=== PATIENT | female | born 1990 | race Hispanic/Latino ===

== ENCOUNTER 2016-10-06 08:50 | Inpatient (IN) | payer MEDICAID ==
[2016-10-06] MEDS ORDERED: MINERAL OIL PO PRN (08:58)
[2016-10-06] MEDS ORDERED: STADOL IV PRN (08:58)
[2016-10-06] MEDS ORDERED: ePHEDrine SULFATE IV PRN ×2 (08:58→14:07)
[2016-10-06] MEDS ORDERED: PHENERGAN PO PRN (08:58)
[2016-10-06] MEDS ORDERED: ZOFRAN IV PRN ×2 (08:58→19:35)
[2016-10-06] MEDS ORDERED: BRETHINE SUB-Q PRN (08:58)
[2016-10-06] MEDS ORDERED: SUBLIMAZE IV PRN (08:58)
[2016-10-06] MEDS ORDERED: PITOCin/NS 20 UNIT/1000ML DRIP 1,000 ML IV SCH (09:00)
[2016-10-06] MEDS ORDERED: LACTATED RINGERS 1,000 ML IV SCH (09:00)
--- NOTE | 2016-10-06 09:01 | History and Physical Report ---
History of Present Illness Date of examination: 10/06/16 Chief complaint: postdates IOL @ 41+2 weeks, , favorable cervix History of present illness: EDC Calculations LMP: 09/27/2016 EDC Confirmation: 09/27/2016 Gestational Age: 9 5/7 weeks Past History : 2 Term Births: 0 Premature Births: 0 Living Children: 0 Para: 0 Aborta: 1 Spont. Ab: 1 # 1 Delivery date: 01/2015 Weeks Gestation: Early Delivery type: SAB Past Medical History: insulin resistance - previouslt on metformin but stopped Past Surgical History: right hand T&A age 7 Denies any prior history of complications from anesthesia. 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 Abnormal PAP: negative CHIKA Exposure: negative Infertility: negative Uterine Anomaly: negative Uterine Surgery (not C/S): negative Other Gynecologic Problems: negative Family Hx: Mother is paranoid schitzophrenic Social Hx: Comitted relationship x 1 year Patient is single pt's mother is paranoid schitzophrenic Infection History Hx of STD: none HIV Risk Eval: no Hepatitis B Risk Eval: low risk Personal hx. of genital herpes: no Partner hx. of genital herpes: no Rash, Viral, or Febrile illness since last LMP? no Varicella/Chicken Pox Status: Previous Disease Genetic History Congenital Heart Defect: Mom: no Dad: no Inga Disease: Mom: no Dad: no Thalassemia Mom: no Dad: no Neural Tube Defect Mom: no Dad: no Down's Syndrome Mom: no Dad: no Jordin-Sachs Mom: no Dad: no Sickle Cell Disease/Trait Mom: no Dad: no Hemophilia Mom: no Dad: no Muscular Dystrophy Mom: no Dad: no Cystic Fibrosis Mom: no Dad: no Fidelia Chorea Mom: no Dad: no Mental Retardation Mom: no Dad: no Fragile X Mom: no Dad: no Other Genetic/Chromosomal Disorder Mom: no Dad: no Child w/other defect Mom: no Dad: no Enviromental Exposures Xray Exposure: no Medication, drug, or alcohol use since LMP: no Chemical/Other Exposure: no Exposure to Cat Liter: no Hx of Parvovirus (Fifth Disease): no Occupational Exposure to Children: none Current Allergies: No known allergies Past History Past Medical History: no pertinent history Social history: single. denies: smoking, alcohol abuse, prescription drug abuse , IV drug use - Obstetrical History Expected Date of Delivery: 09/27/16 Actual Gestation: 41 Week(s) 2 Day(s) : 2 Para: 0 Hx # Term Pregnancies: 0 Number of Pregnancies: 0 Spontaneous Abortions: 1 Induced : 0 Number of Living Children: 0 Medications and Allergies Allergies Allergy/AdvReac Type Severity Reaction Status Date / Time No Known Allergies Allergy Unverified 10/06/16 09:38 Review of Systems All systems: negative - Physical Exam Breasts: Positive: normal Cardiovascular: Regular rate Lungs: Positive: Clear to auscultation, Normal air movement Abdomen: Positive: normal appearance, soft Genitourinary (Female): Positive: normal external genitalia, normal perenium Vulva: both: normal Vagina: Positive: normal moisture Uterus: Positive: normal size, normal contour Anus/Rectum: Positive: normal perianal skin Extremities: Positive: normal Deep Tendon Reflex Grade: Normal +2 - Obstetrical Cervical Dilatation: 3 Cervical Effacement Percentage: 80 station: -2 Results All other labs normal. Laboratory Data-[facility] Test Date Result Blood Type 04/06/2016 A Rh 04/06/2016 Positive Antibody Screen neg Rubella 04/06/2016 Immune Serology (RPR) 04/06/2016 Nonreactive HBsAg 04/06/2016 Negative Hemoglobin 06/09/2016 11.9 Hematocrit 06/09/2016 36.6 Platelets 04/06/2016 236 [id number] Chlamydia DNA 02/28/2016 Negative GC DNA/Culture 02/28/2016 Urine Culture 04/06/2016 Final report Group B Strep cult PAP HIV 04/06/2016 AFP/Quad Screen 04/06/2016 Glucola Test 3hr GTT (Fasting) 1 hr 2 hr 3 hr [facility] Name:[facility] Test Date Result Varicella Ab Sickle Cell 04/06/2016 Negative PPD Fibronectin Cystic Fibrosis Parvovirus TSH Free T4 Hepatitis C ALT AST Uric Acid Creatinine 24 hr Urine Protein NISHA Assessment and Plan admitted for IOL postdates @ 41+2 weeks. GBS NEG, hx unremarkable. u/s in office this week gave EFW 8#3oz. orders in chart. Plan for pitocin and AROM when patient is fully admitted. plan discussed with patient, she verbalizes understanding. - Patient Problems (1) 41 weeks gestation of Current Visit: Yes Status: Acute
[2016-10-06 11:07] LABS: Hematocrit 34.2 % (30.3-42.9); Hemoglobin 11.7 gm/dl (10.1-14.3); Mean Corpuscular HGB Conc 34 % (30-34); Mean Corpuscular Hemoglobin 30 pg (28-32); Mean Corpuscular Volume 88 fl (79-97); Platelet Count 252 K/mm3 (140-440); Red Blood Count 3.89 M/mm3 (3.65-5.03); White Blood Count 9.2 K/mm3 (4.5-11.0)
[2016-10-06] MEDS: PITOCin/NS 30 UNIT/500ML 500 ML IV SCH ×2 (12:18→14:16)
[2016-10-06] MEDS ORDERED: ePHEDrine SULFATE ONE (13:32)
[2016-10-06] MEDS ORDERED: NARCAN 2 MG/2 ML IV PRN (14:07)
--- NOTE | 2016-10-06 14:13 | Anesthesia Consultation ---
Anesthesia Consult and Med Hx Date of service: 10/06/16 - Airway Anesthetic Teeth Evaluation: Good ROM Head & Neck: Adequate Mental/Hyoid Distance: Adequate Mallampati Class: Class II Intubation Access Assessment: Probably Good - Pre-Operative Health Status ASA Pre-Surgery Classification: ASA2 Proposed Anesthetic Plan: Epidural, Spinal - Pulmonary Hx Asthma: No COPD: No Hx Pneumonia: No - Cardiovascular System Hx Hypertension: No - Central Nervous System Hx Seizures: No Hx Psychiatric Problems: No - Endocrine Hx Renal Disease: No Hx End Stage Renal Disease: No Hx Hypothyroidism: No Hx Hyperthyroidism: No - Hematic Hx Anemia: No Hx Sickle Cell Disease: No
[2016-10-06] MEDS ORDERED: fentaNYL-BUPIV 2 MCG/ML-0.125% 100 ML EPIDURAL SCH (15:00)
--- NOTE | 2016-10-06 15:13 | Progress Note ---
Assessment and Plan patient is c/o pain with ctx, rn to call anesthesia for redose. IUPC placed without difficulty. Plan to continue increasing pitocin for adequate labor. anticipate . - Patient Problems (1) 41 weeks gestation of Current Visit: Yes Status: Acute Subjective - Subjective Date of service: 10/06/16 Principal diagnosis: IOL @ 41+2, postdates, meconium Interval history: EDC Calculations LMP: 09/27/2016 EDC Confirmation: 09/27/2016 Gestational Age: 9 5/7 weeks Past History : 2 Term Births: 0 Premature Births: 0 Living Children: 0 Para: 0 Aborta: 1 Spont. Ab: 1 # 1 Delivery date: 01/2015 Weeks Gestation: Early Delivery type: SAB Past Medical History: insulin resistance - previouslt on metformin but stopped Past Surgical History: right hand T&A age 7 Denies any prior history of complications from anesthesia. 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 Abnormal PAP: negative CHIKA Exposure: negative Infertility: negative Uterine Anomaly: negative Uterine Surgery (not C/S): negative Other Gynecologic Problems: negative Family Hx: Mother is paranoid schitzophrenic Social Hx: Comitted relationship x 1 year Patient is single pt's mother is paranoid schitzophrenic Infection History Hx of STD: none HIV Risk Eval: no Hepatitis B Risk Eval: low risk Personal hx. of genital herpes: no Partner hx. of genital herpes: no Rash, Viral, or Febrile illness since last LMP? no Varicella/Chicken Pox Status: Previous Disease Genetic History Congenital Heart Defect: Mom: no Dad: no Inga Disease: Mom: no Dad: no Thalassemia Mom: no Dad: no Neural Tube Defect Mom: no Dad: no Down's Syndrome Mom: no Dad: no Jordin-Sachs Mom: no Dad: no Sickle Cell Disease/Trait Mom: no Dad: no Hemophilia Mom: no Dad: no Muscular Dystrophy Mom: no Dad: no Cystic Fibrosis Mom: no Dad: no [place] Chorea Mom: no Dad: no Mental Retardation Mom: no Dad: no Fragile X Mom: no Dad: no Other Genetic/Chromosomal Disorder Mom: no Dad: no Child w/other defect Mom: no Dad: no Enviromental Exposures Xray Exposure: no Medication, drug, or alcohol use since LMP: no Chemical/Other Exposure: no Exposure to Cat Liter: no Hx of Parvovirus (Fifth Disease): no Occupational Exposure to Children: none Current Allergies: No known allergies Patient reports: loss of fluid, contractions Objective - Vital Signs Vital Signs: Vital Signs - 12hr 10/06/16 10/06/16 10/06/16 09:40 09:41 09:45 Pulse Rate 118 H 120 H 113 H Blood Pressure 118/87 O2 Sat by Pulse 97 97 Oximetry 10/06/16 10/06/16 10/06/16 09:50 09:55 10:49 Pulse Rate 113 H 117 H 118 H Blood Pressure O2 Sat by Pulse 97 97 97 Oximetry 10/06/16 10/06/16 10/06/16 11:50 11:55 12:00 Pulse Rate 100 H 96 H 95 H Blood Pressure O2 Sat by Pulse 97 97 96 Oximetry 10/06/16 10/06/16 10/06/16 12:05 12:10 12:15 Pulse Rate 92 H 107 H 100 H Blood Pressure O2 Sat by Pulse 97 97 98 Oximetry 10/06/16 10/06/16 10/06/16 12:20 12:22 12:25 Pulse Rate 104 H 94 H 112 H Blood Pressure 122/73 O2 Sat by Pulse 97 98 Oximetry 10/06/16 10/06/16 10/06/16 13:44 13:46 13:48 Pulse Rate 121 H 122 H 126 H Blood Pressure 132/78 133/78 131/76 O2 Sat by Pulse Oximetry 10/06/16 10/06/16 10/06/16 13:50 13:52 13:54 Pulse Rate 131 H 129 H 122 H Blood Pressure 132/74 137/78 138/81 O2 Sat by Pulse Oximetry 10/06/16 10/06/16 10/06/16 13:56 13:58 14:00 Pulse Rate 123 H 123 H 116 H Blood Pressure 143/78 148/79 137/71 O2 Sat by Pulse Oximetry 10/06/16 10/06/16 10/06/16 14:02 14:04 14:06 Pulse Rate 103 H 106 H 111 H Blood Pressure 136/77 131/72 130/74 O2 Sat by Pulse Oximetry 10/06/16 10/06/16 10/06/16 14:08 14:10 14:12 Pulse Rate 107 H 103 H 105 H Blood Pressure 128/77 116/59 113/57 O2 Sat by Pulse Oximetry 10/06/16 10/06/16 10/06/16 14:14 14:16 14:18 Pulse Rate 98 H 105 H 99 H Blood Pressure 114/57 122/65 120/65 O2 Sat by Pulse Oximetry 10/06/16 10/06/16 10/06/16 14:20 14:22 14:24 Pulse Rate 97 H 97 H 103 H Blood Pressure 116/72 120/71 118/72 O2 Sat by Pulse Oximetry 10/06/16 10/06/16 10/06/16 14:26 14:28 14:30 Pulse Rate 100 H 98 H 100 H Blood Pressure 124/81 129/82 117/64 O2 Sat by Pulse Oximetry 10/06/16 10/06/16 10/06/16 14:32 14:34 14:48 Pulse Rate 108 H 106 H 111 H Blood Pressure 116/65 134/63 130/71 O2 Sat by Pulse Oximetry 10/06/16 10/06/16 10/06/16 14:50 14:52 14:54 Pulse Rate 105 H 108 H 101 H Blood Pressure 126/70 128/73 121/76 O2 Sat by Pulse Oximetry 10/06/16 10/06/16 10/06/16 15:05 15:08 15:10 Pulse Rate 108 H 110 H 111 H Blood Pressure 139/79 126/80 126/74 O2 Sat by Pulse Oximetry - Exam Breasts: normal Cardiovascular: Regular rate Lungs: Clear to auscultation, Normal air movement Abdomen: Present: normal appearance, soft Vulva: both: normal Uterus: Present: normal FHR: auscultation normal, category 1 Uterine Contraction Monitor Mode: Internal Cervical Dilatation: 5.5 Cervical Effacement Percentage: 90 station: -1 Uterine Contraction Frequency (min): 1.5-3 Uterine Contraction Duration: 60 Uterine Contraction Pattern: Regular Uterine Tone Measurement Phase: Contraction Uterine Contraction Intensity: Moderate Deep Tendon Reflex Grade: Normal +2 - Labs Labs: Laboratory Results - last 24 hr 10/06/16 10/06/16 10/06/16 10:52 10:52 10:52 WBC 9.2 RBC 3.89 Hgb 11.7 Hct 34.2 MCV 88 MCH 30 MCHC 34 RDW 14.0 Plt Count 252 RPR Nonreactive Blood Type A POSITIVE Antibody Screen Negative
--- NOTE | 2016-10-06 16:12 | Progress Note ---
Assessment and Plan patient is now comfortable, good change with SVE, IUPC tracing ctx well. FHT CAT 1. continue with pitocin induction, anticipate . Dr. Stoner aware of status. - Patient Problems (1) 41 weeks gestation of Current Visit: Yes Status: Acute Subjective - Subjective Date of service: 10/06/16 Principal diagnosis: IOL @ 41+2, postdates, meconium Interval history: EDC Calculations LMP: 09/27/2016 EDC Confirmation: 09/27/2016 Gestational Age: 9 5/7 weeks Past History : 2 Term Births: 0 Premature Births: 0 Living Children: 0 Para: 0 Aborta: 1 Spont. Ab: 1 # 1 Delivery date: 01/2015 Weeks Gestation: Early Delivery type: SAB Past Medical History: insulin resistance - previouslt on metformin but stopped Past Surgical History: right hand T&A age 7 Denies any prior history of complications from anesthesia. 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 Abnormal PAP: negative CHIKA Exposure: negative Infertility: negative Uterine Anomaly: negative Uterine Surgery (not C/S): negative Other Gynecologic Problems: negative Family Hx: Mother is paranoid schitzophrenic Social Hx: Comitted relationship x 1 year Patient is single pt's mother is paranoid schitzophrenic Infection History Hx of STD: none HIV Risk Eval: no Hepatitis B Risk Eval: low risk Personal hx. of genital herpes: no Partner hx. of genital herpes: no Rash, Viral, or Febrile illness since last LMP? no Varicella/Chicken Pox Status: Previous Disease Genetic History Congenital Heart Defect: Mom: no Dad: no Inga Disease: Mom: no Dad: no Thalassemia Mom: no Dad: no Neural Tube Defect Mom: no Dad: no Down's Syndrome Mom: no Dad: no Jordin-Sachs Mom: no Dad: no Sickle Cell Disease/Trait Mom: no Dad: no Hemophilia Mom: no Dad: no Muscular Dystrophy Mom: no Dad: no Cystic Fibrosis Mom: no Dad: no Fidelia Chorea Mom: no Dad: no Mental Retardation Mom: no Dad: no Fragile X Mom: no Dad: no Other Genetic/Chromosomal Disorder Mom: no Dad: no Child w/other defect Mom: no Dad: no Enviromental Exposures Xray Exposure: no Medication, drug, or alcohol use since LMP: no Chemical/Other Exposure: no Exposure to Cat Liter: no Hx of Parvovirus (Fifth Disease): no Occupational Exposure to Children: none Current Allergies: No known allergies Patient reports: loss of fluid, contractions Objective - Vital Signs Vital Signs: Vital Signs - 12hr 10/06/16 10/06/16 10/06/16 09:40 09:41 09:45 Pulse Rate 118 H 120 H 113 H Respiratory Rate Blood Pressure 118/87 O2 Sat by Pulse 97 97 Oximetry 10/06/16 10/06/16 10/06/16 09:50 09:55 10:49 Pulse Rate 113 H 117 H 118 H Respiratory Rate Blood Pressure O2 Sat by Pulse 97 97 97 Oximetry 10/06/16 10/06/16 10/06/16 11:50 11:55 12:00 Pulse Rate 100 H 96 H 95 H Respiratory Rate Blood Pressure O2 Sat by Pulse 97 97 96 Oximetry 10/06/16 10/06/16 10/06/16 12:05 12:10 12:15 Pulse Rate 92 H 107 H 100 H Respiratory Rate Blood Pressure O2 Sat by Pulse 97 97 98 Oximetry 10/06/16 10/06/16 10/06/16 12:20 12:22 12:25 Pulse Rate 104 H 94 H 112 H Respiratory Rate Blood Pressure 122/73 O2 Sat by Pulse 97 98 Oximetry 10/06/16 10/06/16 10/06/16 13:44 13:46 13:48 Pulse Rate 121 H 122 H 126 H Respiratory Rate Blood Pressure 132/78 133/78 131/76 O2 Sat by Pulse Oximetry 10/06/16 10/06/16 10/06/16 13:50 13:52 13:54 Pulse Rate 131 H 129 H 122 H Respiratory Rate Blood Pressure 132/74 137/78 138/81 O2 Sat by Pulse Oximetry 10/06/16 10/06/16 10/06/16 13:56 13:58 14:00 Pulse Rate 123 H 123 H 116 H Respiratory Rate Blood Pressure 143/78 148/79 137/71 O2 Sat by Pulse Oximetry 10/06/16 10/06/16 10/06/16 14:02 14:04 14:06 Pulse Rate 103 H 106 H 111 H Respiratory Rate Blood Pressure 136/77 131/72 130/74 O2 Sat by Pulse Oximetry 10/06/16 10/06/16 10/06/16 14:08 14:10 14:12 Pulse Rate 107 H 103 H 105 H Respiratory Rate Blood Pressure 128/77 116/59 113/57 O2 Sat by Pulse Oximetry 10/06/16 10/06/16 10/06/16 14:14 14:16 14:18 Pulse Rate 98 H 105 H 99 H Respiratory Rate Blood Pressure 114/57 122/65 120/65 O2 Sat by Pulse Oximetry 10/06/16 10/06/16 10/06/16 14:20 14:22 14:24 Pulse Rate 97 H 97 H 103 H Respiratory Rate Blood Pressure 116/72 120/71 118/72 O2 Sat by Pulse Oximetry 10/06/16 10/06/16 10/06/16 14:26 14:28 14:30 Pulse Rate 100 H 98 H 100 H Respiratory Rate Blood Pressure 124/81 129/82 117/64 O2 Sat by Pulse Oximetry 10/06/16 10/06/16 10/06/16 14:32 14:34 14:48 Pulse Rate 108 H 106 H 111 H Respiratory Rate Blood Pressure 116/65 134/63 130/71 O2 Sat by Pulse Oximetry 10/06/16 10/06/16 10/06/16 14:50 14:52 14:54 Pulse Rate 105 H 108 H 101 H Respiratory Rate Blood Pressure 126/70 128/73 121/76 O2 Sat by Pulse Oximetry 10/06/16 10/06/16 10/06/16 15:05 15:08 15:10 Pulse Rate 108 H 110 H 111 H Respiratory Rate Blood Pressure 139/79 126/80 126/74 O2 Sat by Pulse Oximetry 10/06/16 10/06/16 10/06/16 15:14 15:22 15:24 Pulse Rate 110 H 112 H Respiratory 16 Rate Blood Pressure 122/71 121/73 121/73 O2 Sat by Pulse Oximetry 10/06/16 10/06/16 15:40 15:55 Pulse Rate 107 H 113 H Respiratory Rate Blood Pressure 120/71 131/80 O2 Sat by Pulse Oximetry - Exam Breasts: normal Cardiovascular: Regular rate Lungs: Clear to auscultation Abdomen: Present: normal appearance, soft Vulva: both: normal Uterus: Present: normal FHR: category 1 Uterine Contraction Monitor Mode: Internal Cervical Dilatation: 7 Cervical Effacement Percentage: 90 station: 0 Uterine Contraction Frequency (min): 1.5-2 Uterine Contraction Duration: 60-70 Uterine Contraction Pattern: Regular Uterine Tone Measurement Phase: Contraction Uterine Contraction Intensity: Strong/Firm - Labs Labs: Laboratory Results - last 24 hr 10/06/16 10/06/16 10/06/16 10:52 10:52 10:52 WBC 9.2 RBC 3.89 Hgb 11.7 Hct 34.2 MCV 88 MCH 30 MCHC 34 RDW 14.0 Plt Count 252 RPR Nonreactive Blood Type A POSITIVE Antibody Screen Negative
[2016-10-06] MEDS ORDERED: METHERGINE IM ONE (18:54)
[2016-10-06] MEDS ORDERED: BENADRYL PO PRN (19:35)
[2016-10-06] MEDS ORDERED: TYLENOL PO PRN (19:35)
[2016-10-06] MEDS ORDERED: PHENERGAN PR PRN (19:35)
[2016-10-06] MEDS ORDERED: MILK OF MAGNESIA PO PRN (19:35)
[2016-10-06] MEDS ORDERED: DULCOLAX PR PRN (19:35)
[2016-10-06] MEDS ORDERED: NORCO 5/325 PO PRN (19:35)
[2016-10-06] MEDS ORDERED: LANSINOH TP PRN (19:35)
--- NOTE | 2016-10-06 19:44 | Procedure Note ---
OB Delivery Note - Delivery Date of Delivery: 10/06/16 Surgeon: POOJA MARY Estimated blood loss: 500cc - Vaginal Delivery presentation: vertex Delivery position: OA Intrapartum events: meconium (4+) Delivery induction: oxytocin Delivery augmentation: rupture of membranes, pitocin Delivery monitor: external FHT, external uterine, internal FHT, internal uterine Route of delivery: Delivery placenta: spontaneous Episiotomy: none Delivery laceration: 2nd degree (perineal) Delivery repair: vicryl (3-0) Anesthesia: intravenous, epidural Delivery comments: Delivery as above. was not complicated. No shoulder dystocia. Ant shoulder and rest of delivered without difficulty. was taken to the [place] [facility] cord was clamped x 2 and cut. 2nd degree perineal laceration noted and was without extension. Repaired in usual fashion with above state sucture. Placenta delivered spontaneously intact with 3vc noted. Uterine atony noted and relieved with fundal massage and pitocin. EBL 500ml. Sponge and needle counts correct. - Infant A at 1 minute: 8 at 5 minutes: 9 Infant Gender: Female (8lbs 4oz)
[2016-10-06] MEDS ORDERED: MOTRIN PO SCH (20:00)
[2016-10-06] MEDS ORDERED: SODIUM CHLORIDE FLUSH SYRINGE 10 ML IV SCH (20:00)
[2016-10-06] MEDS: DERMOPLAST TP PRN (22:00)
[2016-10-06] MEDS: TUCKS PAD TP PRN (22:00)
[2016-10-06] MEDS: MOTRIN PO SCH (22:00)
[2016-10-07] MEDS ORDERED: BOOSTRIX IM ONE ×2 (06:00→21:15)
[2016-10-07] MEDS: MOTRIN PO SCH ×3 (06:25→18:08)
[2016-10-07 09:52] LABS: Hematocrit 27.3 % (30.3-42.9); Hemoglobin 9.2 gm/dl (10.1-14.3)
--- NOTE | 2016-10-07 10:08 | Progress Note ---
Assessment and Plan Patient sitting up caring for , no complaints. Lochia scant, VSSAF (some elevated b/p's during labor and delivery, will continue to observe. no s/s pre-e) H&H 9.2/27.3, anemia from blood loss, acute, pt is asymptomatic. Pt requesting d/c home tonight, encouraged to stay additional night for assistance with breast feeding but patient is certain she wants to be home and report having family there to help her. if b/p's are normal, will d/c home tonight. - Patient Problems (1) 41 weeks gestation of Current Visit: Yes Status: Resolved (2) (normal spontaneous vaginal delivery) Diagnosis Date: 10/06/16 Current Visit: Yes Status: Acute (3) Anemia due to blood loss, acute Current Visit: Yes Status: Acute Plan to address problem: asymptomatic FE supplementation Subjective - Subjective Date of service: 10/07/16 Principal diagnosis: day #1 s/p Interval history: EDC Calculations LMP: 09/27/2016 EDC Confirmation: 09/27/2016 Gestational Age: 9 5/7 weeks Past History : 2 Term Births: 0 Premature Births: 0 Living Children: 0 Para: 0 Aborta: 1 Spont. Ab: 1 # 1 Delivery date: 01/2015 Weeks Gestation: Early Delivery type: SAB Past Medical History: insulin resistance - previouslt on metformin but stopped Past Surgical History: right hand T&A age 7 Denies any prior history of complications from anesthesia. 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 Abnormal PAP: negative CHIKA Exposure: negative Infertility: negative Uterine Anomaly: negative Uterine Surgery (not C/S): negative Other Gynecologic Problems: negative Family Hx: Mother is paranoid schitzophrenic Social Hx: Comitted relationship x 1 year Patient is single pt's mother is paranoid schitzophrenic Infection History Hx of STD: none HIV Risk Eval: no Hepatitis B Risk Eval: low risk Personal hx. of genital herpes: no Partner hx. of genital herpes: no Rash, Viral, or Febrile illness since last LMP? no Varicella/Chicken Pox Status: Previous Disease Genetic History Congenital Heart Defect: Mom: no Dad: no Inga Disease: Mom: no Dad: no Thalassemia Mom: no Dad: no Neural Tube Defect Mom: no Dad: no Down's Syndrome Mom: no Dad: no Jordin-Sachs Mom: no Dad: no Sickle Cell Disease/Trait Mom: no Dad: no Hemophilia Mom: no Dad: no Muscular Dystrophy Mom: no Dad: no Cystic Fibrosis Mom: no Dad: no Fidelia Chorea Mom: no Dad: no Mental Retardation Mom: no Dad: no Fragile X Mom: no Dad: no Other Genetic/Chromosomal Disorder Mom: no Dad: no Child w/other defect Mom: no Dad: no Enviromental Exposures Xray Exposure: no Medication, drug, or alcohol use since LMP: no Chemical/Other Exposure: no Exposure to Cat Liter: no Hx of Parvovirus (Fifth Disease): no Occupational Exposure to Children: none Current Allergies: No known allergies Patient reports: appetite normal, voiding normally, pain well controlled, ambulating normally, no dizzy ambulation, no nauseated : doing well, nursing well Objective - Vital Signs Latest vital signs: Vital Signs Temp Pulse Pulse Resp BP BP Pulse Ox 10/07/16 05:10 98.8 F 79 20 105/64 10/07/16 00:20 98.6 F 84 20 139/69 10/06/16 22:00 18 10/06/16 21:54 98.2 F 146 H 18 146/74 10/06/16 20:44 127 H 97 10/06/16 20:39 130 H 97 10/06/16 19:23 98.5 F 102 H 18 123/76 97 10/06/16 19:10 121 H 126/66 10/06/16 19:08 98.0 F 97 H 18 98 10/06/16 18:58 126 H 108/68 10/06/16 18:53 98.5 F 127 H 18 126/66 97 10/06/16 18:48 98.4 F 98 H 18 108/68 99 10/06/16 18:40 144 H 191/74 10/06/16 18:26 121 H 166/83 10/06/16 18:10 114 H 157/86 10/06/16 17:40 117 H 145/80 10/06/16 17:25 125 H 150/91 10/06/16 17:10 118 H 145/85 10/06/16 16:56 96 H 121/59 10/06/16 16:41 106 H 129/73 10/06/16 16:26 105 H 122/73 10/06/16 16:10 114 H 126/77 10/06/16 15:55 113 H 131/80 10/06/16 15:40 107 H 120/71 10/06/16 15:24 112 H 121/73 10/06/16 15:22 16 121/73 10/06/16 15:14 110 H 122/71 10/06/16 15:10 111 H 126/74 10/06/16 15:08 110 H 126/80 10/06/16 15:05 108 H 139/79 10/06/16 14:54 101 H 121/76 10/06/16 14:52 108 H 128/73 10/06/16 14:50 105 H 126/70 10/06/16 14:48 111 H 130/71 10/06/16 14:34 106 H 134/63 10/06/16 14:32 108 H 116/65 10/06/16 14:30 100 H 117/64 10/06/16 14:28 98 H 129/82 10/06/16 14:26 100 H 124/81 10/06/16 14:24 103 H 118/72 10/06/16 14:22 97 H 120/71 10/06/16 14:20 97 H 116/72 10/06/16 14:18 99 H 120/65 10/06/16 14:16 105 H 122/65 10/06/16 14:14 98 H 114/57 10/06/16 14:12 105 H 113/57 10/06/16 14:10 103 H 116/59 10/06/16 14:08 107 H 128/77 10/06/16 14:06 111 H 130/74 10/06/16 14:04 106 H 131/72 10/06/16 14:02 103 H 136/77 10/06/16 14:00 116 H 137/71 10/06/16 13:58 123 H 148/79 10/06/16 13:56 123 H 143/78 10/06/16 13:54 122 H 138/81 10/06/16 13:52 129 H 137/78 10/06/16 13:50 131 H 132/74 10/06/16 13:48 126 H 131/76 10/06/16 13:46 122 H 133/78 10/06/16 13:44 121 H 132/78 10/06/16 12:25 112 H 98 10/06/16 12:22 94 H 122/73 10/06/16 12:20 104 H 97 10/06/16 12:15 100 H 98 10/06/16 12:10 107 H 97 10/06/16 12:05 92 H 97 10/06/16 12:00 95 H 96 10/06/16 11:55 96 H 97 10/06/16 11:50 100 H 97 10/06/16 10:49 118 H 97 Intake and Output 10/06/16 10/07/16 10/07/16 22:59 06:59 14:59 Intake Total 365 605 Output Total 300 800 Balance 65 -195 Intake: IV 125 125 PITOCin/NS 20 UNIT/1000ML 125 125 DRIP 1,000 ML @ 125 mls/ hr IV DIRECT CAROLANN Rx#: [id number] Oral 360 Intake, Free Water 240 120 Output: Urine 300 800 Void 300 800 Other: Total, Intake Amount 120 Total, Output Amount 300 300 Estimated Blood Loss 500 - Exam Breasts: Present: normal, Cardiovascular: Present: Regular rate Lungs: Present: Clear to auscultation, Normal air movement Abdomen: Present: normal appearance, soft, normal bowel sounds Vulva: both: laceration/episiotomy Uterus: Present: normal, firm, fundal height at umbilicus Extremities: Present: normal Incision: Present: normal, dry, intact - Labs Labs: Abnormal lab results 10/07/16 Range/Units 09:30 Hgb 9.2 L (10.1-14.3) gm/dl Hct 27.3 L D (30.3-42.9) %
--- NOTE | 2016-10-07 10:13 | Discharge Summary ---
Providers - Providers Date of Admission: 10/06/16 11:54 Date of discharge: 10/07/16 (pt requesting d/c home) Attending physician: POOJA MARY Primary care physician: POOJA MARY Hospitalization Reason for admission: induction of labor (postdates ) Delivery: Episiotomy: none Laceration: 2nd degree Incision: normal, dry, intact Other procedures: none complications: none Discharge diagnosis: IUP at term delivered [place] baby: female Hospital course: uncomplicated vaginal delivery Condition at discharge: Good Disposition: DISCHARGED TO HOME OR SELFCARE - Discharge Diagnoses (1) (normal spontaneous vaginal delivery) Status: Acute (2) Anemia due to blood loss, acute Status: Acute Plan - Discharge Medications Prescriptions: Ferrous Sulfate [Feosol 325 MG tab] 325 mg PO BID #90 tablet Ibuprofen [Motrin 800 MG tab] 800 mg PO Q8HR PRN #30 tablet PRN Reason: Pain - Provider Discharge Summary Activity: routine, no sex for 6 weeks, no heavy lifting 4 weeks, no strenuous exercise Diet: routine Instructions: routine Additional instructions: [] Smoking cessation referral if applicable(refer to patient education folder for contact #) [] Refer to [facility]'s [facility] Booklet Call your doctor immediately for: * Fever > 100.5 * Heavy vaginal bleeding ( >1 pad per hour) * Severe persistent headache * Shortness of breath * Reddened, hot, painful area to leg or breast * Drainage or odor from incision. * Keep incision clean and dry at all times and follow doctor's instructions regarding bathing/showering - Follow up plan Follow up: POOJA MARY MD [Primary Care Provider] - 11/06/16 (Congratulations!! Please call [phone] to schedule your visit in 4 weeks. Call for any questions or concerns.)
[2016-10-07] MEDS: TUCKS PAD TP PRN (21:55)
[2016-10-07] MEDS: DERMOPLAST TP PRN (21:55)
[2016-10-07 23:52] VITALS: BP 119/66
== END 2016-10-07 22:10 | disposition home or self-care (01) | DRG 775 ==
LOC: TRG 08:50 → LD 09:25 → TRG 11:53 → LD 11:54 → OB 21:42
PROVIDERS: ADMIT Obstetrics & Gynecology; ATTEND Obstetrics & Gynecology
PROC: 10E0XZZ Delivery of Products of Conception, External Approach (ICD-10-PCS; principal; 2016-10-06)
PROC: 0KQM0ZZ Repair Perineum Muscle, Open Approach (ICD-10-PCS; 2016-10-06)
PROC: 3E033VJ Introduction of Other Hormone into Peripheral Vein, Percutaneous Approach (ICD-10-PCS; 2016-10-06)
PROC: 00HU33Z Insertion of Infusion Device into Spinal Canal, Percutaneous Approach (ICD-10-PCS; 2016-10-06)
PROC: 3E0R3CZ (ICD-10-PCS; 2016-10-06)
DX: O48.0 Post-term pregnancy (principal); O77.0 Labor and delivery complicated by meconium in amniotic fluid; O70.1 Second degree perineal laceration during delivery; O99.02 Anemia complicating childbirth; D62 Acute posthemorrhagic anemia; Z3A.41 41 weeks gestation of pregnancy; Z37.0 Single live birth
CPT/HCPCS: 36415; 85014; 85018; 85027; 86592; 86850; 86900; 86901; 88307; 90471; 90715; J2210; J2405; J2590; J3010; J7120